=== PATIENT | male | born 1955 | race Caucasian/White ===

== ENCOUNTER → 2020-12-05 11:23 | Outpatient (CLI) | payer OTHER, SELFPAY ==
[2020-12-05 21:56] LABS: COVID19 - ORCAS (NP or Nasal) Negative (Negative)
== END ==
PROVIDERS: PCP Physician Assistant Medical; Referring Provider Physician Assistant Medical; Visit Provider Physician Assistant Medical
DX: Z20.822 Contact with and (suspected) exposure to COVID-19 (principal)
CPT/HCPCS: U0003

== ENCOUNTER → 2020-12-12 10:43 | Outpatient (CLI) | payer OTHER, SELFPAY ==
[2020-12-12 21:02] LABS: COVID19 - ORCAS (NP or Nasal) Negative (Negative)
== END ==
PROVIDERS: PCP Physician Assistant Medical; Visit Provider Physician Assistant
DX: Z20.822 Contact with and (suspected) exposure to COVID-19 (principal)
CPT/HCPCS: U0003